=== PATIENT | female | born 1935 | race Caucasian/White ===

== ENCOUNTER 2018-03-28 04:26 | Inpatient (IN) | payer MEDICARE ==
[2018-03-28 04:50] LABS: Actual Bicarbonate (HCO3a) 28.6 mEq/L (22-28); Analyzer IN Cardio ER; CO2 Tension 47.7 mmHg (35.0-45.0); Calcium, Ionized 1.14 mmol/L (1.12-1.30); Carboxyhemoglobin (COHb) 0.5 gm% (0.0-3.0); Hemoglobin (Hb) 14.2 g/dL (12.0-16.0); O2 Tension (PaO2) 67.2 mmHg (> 60.0); Potassium - ABG Lab 4.45 mmol/L (3.70-5.30)
[2018-03-28 04:51] LABS: ALV-art Gradient 101.335 (0-20); Puncture Site RRA
[2018-03-28 05:13] LABS: #Basophils 0.1 thou/uL (0.0-0.2); #Eosinphils 0.8 thou/uL (0.0-0.7); #Monocytes 1.1 thou/uL (0.11-0.59); #Neutrophils 7.7 thou/uL (1.40-6.50); %Basophils 0.7 % (0.0-1.0); %Eosinophils 7.1 % (0.0-10.0); %Lymphocytes 16.7 % (21.0-51.0); %Monocytes 9.3 % (0.0-10.0); %Neutrophils 66.2 % (42.0-75.0); Hemoglobin 13.5 g/dL (12.0-16.0); Mean Corpuscular HGB CONC 33.4 g/dL (32.0-36.0); Mean Corpuscular Hemoglobin 32.9 pg (27.0-31.0); Mean Corpuscular Volume 98.5 fL (78.0-98.0); Mean Platelet Volume 6.7 fL (7.4-10.4); Platelet Count 339 thou/uL (130-400); RBC Distribution Width 12.3 % (11.5-14.5); Red Blood Cell (RBC) Count 4.11 mill/uL (4.20-5.40); White Blood Cell (WBC) Count 11.7 thou/uL (4.8-10.8)
[2018-03-28 05:37] LABS: ALT (SGPT) Less than 7 U/L (8-55); AST (SGOT) 14 U/L (5-34); Albumin 3.9 g/dL (3.4-4.8); Alkaline Phosphatase 78 U/L (40-150); Anion Gap 15 mmol/L (10-20); BUN (Urea Nitrogen) 24 mg/dL (9.8-20.1); Bilirubin, Total 0.2 mg/dL (0.2-1.2); CK (CPK) 69 U/L (29-168); CKMB 3.5 ng/mL (0-6.6); Calc. Creatinine Clearance 0 mL/min (70-130); Calcium 8.8 mg/dL (7.8-10.44); Carbon Dioxide 24 mmol/L (23-31); Chloride 107 mmol/L (98-107); Estimated GFR-MDRD 58; Globulin 2.5 g/dL (2.4-3.5); Glucose 90 mg/dL (83-110); Lipase 22 U/L (8-78); Potassium 4.6 mmol/L (3.5-5.1); Protein, Total 6.4 g/dL (6.0-8.3); Sodium 141 mmol/L (136-145); Troponin I 0.041 ng/mL (< 0.028)
[2018-03-28 07:39] LABS: Bilirubin Negative (Negative); Blood, Urine Small (Negative); Clarity CLEAR (Clear); Glucose, Urine (Dipstick) Negative (Negative); Leukocyte Negative (Negative); Nitrite Negative (Negative); Protein, Urine (Dipstick) Negative (Neg-Trace); Specific Gravity, Urine 1.009 (1.002-1.036); Urobilinogen 0.2 mg/dL (0.2-1.0); pH, Urine 6.5 (5.0-9.0)
[2018-03-28 07:42] LABS: Bacteria/HPF 1+ HPF (None Seen); Hyaline Casts/LPF 0-3 HYALINE CAST LPF (0-3 Hyaline); RBC/HPF 0-3 HPF (0-3); Squamous Epithelial 0-3 HPF (0-3); WBC/HPF 0-3 HPF (0-3)
[2018-03-28 07:46] LABS: Troponin I 0.509 ng/mL (< 0.028)
--- NOTE | 2018-03-28 09:01 | RAD ---
ONE VIEW CHEST: HISTORY: Dyspnea. COMPARISON: 09/04/2016 FINDINGS: Normal cardiac silhouette. Pulmonary vessels and hilum are normal. Costophrenic angles are clear. Chronic changes in the lung parenchyma without consolidation or mass. Mild hyperinflation. No pneum othorax or osseous abnormalities. IMPRESSION: Chronic changes. No acute cardiopulmonary process. POS: [facility]
--- NOTE | 2018-04-01 11:33 | EKG ---
Test Reason : Blood Pressure : / mmHG Vent. Rate : 125 BPM Atrial Rate : 125 BPM P-R Int : 136 ms QRS Dur : 106 ms QT Int : 348 ms P-R-T Axes : 049 106 035 degrees QTc Int : 502 ms Sinus tachycardia with Fusion complexes Incomplete right bundle branch block Right ventricular hypertrophy with repolarization abnormality Abnormal ECG Confirmed by SANTIAGO RILEY, VINCE ([id number]), fashion editor GREGORY KNOX ([id number]) on 04/01/2018 11:32:54 AM Referred By: Confirmed By:VINCE HENDERSON MD
== END 2018-03-28 12:19 | disposition home or self-care (01) | DRG 189 ==
LOC: ERS 04:26 → ERHOLD 06:22
PROVIDERS: ADMIT Hospitalist; ATTEND Hospitalist
DX: J96.20 Acute and chronic respiratory failure, unspecified whether with hypoxia or hypercapnia (principal); E86.0 Dehydration; Z66 Do not resuscitate; S41.112A Laceration without foreign body of left upper arm, initial encounter; W06.XXXA Fall from bed, initial encounter; E78.5 Hyperlipidemia, unspecified; E03.9 Hypothyroidism, unspecified; J44.9 Chronic obstructive pulmonary disease, unspecified; I10 Essential (primary) hypertension; Z53.21 Procedure and treatment not carried out due to patient leaving prior to being seen by health care provider
CPT/HCPCS: 36415; 51701; 71045; 80053; 81003; 81015; 82553; 82805; 83605; 83690; 83880; 84484; 85025; 87040; 93005; 94640; 94760; 96361; 96365; 96366; 96367; A4353; J1956; J3370; J7620